=== PATIENT | female | born 1970 | race Two or more races ===

== ENCOUNTER 2017-04-11 09:26 | Inpatient (IN) | payer OTHER ==
[~2017-04-11] VITALS: Ht 170.2 cm; Wt 50.8 kg
== END 2017-04-21 20:38 | disposition home or self-care (01) | DRG 331 ==
LOC: O/R 04-18 07:05 → SURH 04-18 07:05
PROVIDERS: Colon & Rectal Surgery
PROC: 0WQF4ZZ Repair Abdominal Wall, Percutaneous Endoscopic Approach (ICD-10-PCS; 2017-04-18)
PROC: 0DJD8ZZ Inspection of Lower Intestinal Tract, Via Natural or Artificial Opening Endoscopic (ICD-10-PCS; 2017-04-18)
PROC: 0DTN4ZZ Resection of Sigmoid Colon, Percutaneous Endoscopic Approach (ICD-10-PCS; principal; 2017-04-18 08:45)
PROC: 3E0F7GC Introduction of Other Therapeutic Substance into Respiratory Tract, Via Natural or Artificial Opening (ICD-10-PCS; 2017-04-19)
DX: K57.32 Diverticulitis of large intestine without perforation or abscess without bleeding (principal); K43.9 Ventral hernia without obstruction or gangrene; J45.20 Mild intermittent asthma, uncomplicated

== ENCOUNTER 2017-07-18 09:45 | Outpatient (CLI) | payer OTHER | END 2017-07-18 09:55 | disposition home or self-care (01) | LOC: TOM 09:45 | DX: R10.32 Left lower quadrant pain (principal); R10.9 Unspecified abdominal pain ==

== ENCOUNTER 2017-08-15 06:53 | Day surgery (SDC) | payer OTHER | END 2017-08-15 12:40 | disposition home or self-care (01) | LOC: AMB-ENDOS 06:53 | DX: K64.8 Other hemorrhoids (principal) ==